=== PATIENT | female | born 1980 | race Caucasian/White ===

== ENCOUNTER 2022-12-19 22:13 | Emergency (ER) | payer OTHER ==
[~2022-12-19] VITALS: Ht 165.1 cm; Wt 68.0 kg
--- NOTE | 2022-12-19 22:14 | NUR ---
PT OFFLOADED TO BED 07 BLS
[2022-12-19 22:15] VITALS: BP 131/70
[2022-12-19] MEDS ORDERED: ONDANSETRON 4 MG/2 ML VIAL IVP ONE (22:40)
[2022-12-19] MEDS ORDERED: MORPHINE SULFATE 4 MG/ML SYR IVP ONE (22:40)
[2022-12-19 23:09] LABS: BASOPHILS % (AUTO) 0.2 % (0.0-2.0); EOSINOPHILS # (AUTO) 0.1 K/uL (0-0.4); EOSINOPHILS % (AUTO) 0.7 % (0.0-4.0); HEMATOCRIT 39.9 % (36-48); HEMOGLOBIN 13.4 g/dL (12.0-16.0); LYMPHOCYTES # (AUTO) 1.6 K/uL (2.5-16.5); LYMPHOCYTES % (AUTO) 15.4 % (20.5-51.1); MEAN CORPUSCULAR HEMOGLOBIN 28 pg (27-31); MEAN CORPUSCULAR HGB CONC 34 g/dL (33-37); MEAN CORPUSCULAR VOLUME 83.4 fL (80-94); MONOCYTES # (AUTO) 0.5 K/uL (0.8-1.0); MONOCYTES % (AUTO) 4.5 % (1.7-9.3); NEUTROPHILS # (AUTO) 8.5 K/uL (1.8-7.7); NEUTROPHILS % (AUTO) 79.2 % (42.2-75.2); PLATELET COUNT (AUTO) 335 K/uL (140-450); RED BLOOD CELL COUNT(AUTO) 4.78 MIL/uL (4.20-5.40); RED CELL DISTRIBUTION WIDTH 13.1 % (11.6-13.7); WHITE BLOOD COUNT (AUTO) 10.7 K/uL (4.8-10.8)
--- NOTE | 2022-12-19 23:10 | NUR ---
Ultrasound at bedside.
--- NOTE | 2022-12-20 00:08 | NUR ---
Patient's son at bedside.
[2022-12-20 00:18] LABS: ALBUMIN 3.8 g/dL (3.4-5.0); ANION GAP 16.8 (8-16); CARBON DIOXIDE 22.1 mmol/L (21-32); CREATININE 0.6 mg/dL (0.6-1.3); POTASSIUM 3.9 mmol/L (3.5-5.1); TOTAL BILIRUBIN 0.4 mg/dL (0.0-1.0)
[2022-12-20 01:35] LABS: APPEARANCE,URINE SL CLOUDY (CLEAR); BILIRUBIN,URINE NEGATIVE (NEGATIVE); BLOOD, URINE 3+ (NEGATIVE); COLOR,URINE YELLOW (YELLOW); LEUKOCYTE ESTERASE ,URINE 2+ (NEGATIVE); NITRITE, URINE NEGATIVE (NEGATIVE); UGLUCOSE NEGATIVE (NEGATIVE)
[2022-12-20] MEDS ORDERED: cefTRIAXone 1,000 MG VIAL ONE (03:20)
--- NOTE | 2022-12-20 04:29 | NUR ---
Dr. Rascon examining patient.
[2022-12-20] MEDS ORDERED: NITR100C7 PO (04:31)
[2022-12-20] MEDS ORDERED: FAMO-92 PO (04:31)
[2022-12-20 04:42] VITALS: BP 121/66
--- NOTE | 2022-12-20 04:45 | NUR ---
Patient discharged with v/s stable. Written and verbal after care instructions given and explained. Patient alert, oriented and verbalized understanding of instructions. Ambulatory with steady gait. All questions addressed prior to discharge. ID band removed. Patient advised to follow up with PMD. Rx of Pepcid and Macrobid given. Patient educated on indication of medication including possible reaction and side effects. Opportunity to ask questions provided and answered.
== END 2022-12-20 04:45 | disposition home or self-care (01) ==
LOC: MED 22:13
DX: N39.0 Urinary tract infection, site not specified (principal); K80.20 Calculus of gallbladder without cholecystitis without obstruction; Z79.899 Other long term (current) drug therapy; Z79.2 Long term (current) use of antibiotics
CPT/HCPCS: 36415; 76705; 80053; 81001; 81025; 82150; 83605; 83690; 85025; 87040; 87086; 96365; 96375; 99285; J0696; J2270; J2405; Q0092